=== PATIENT | male | born 1950 | race African-American/Black ===

== ENCOUNTER 2019-08-31 20:32 | Inpatient (IN) | payer MEDICARE, MEDICAID ==
[~2019-08-31] VITALS: Ht 190.5 cm; Wt 87.6 kg
[2019-08-31 20:36] VITALS: Ht 190.5 cm; Wt 87.6 kg
--- NOTE | 2019-08-31 20:54 | NUR ---
PT PRESENTS TO ED BROUGHT BY FRIEND, SHARON CONNER, WHO TOOK IN THE PATIENT RECENTLY WHO PREVIOUSLY WAS HOMELESS FOR APPROX 20+ YEARS. PER SHARON, PATIENTS BASELINE IS TYPICALLY MENTAL CAPACITY OF A 7-8 YEAR OLD BUT TODAY WAS ACTING MORE ABNORMAL THAN USUAL. PT CALLED SHARON AND STATED "PEOPLE ARE BREAKING INTO THE HOUSE AND COMING TO TAKE THINGS." FRIEND, SHARON REPORTS PT HAS HX OF DRUG USE MANY YEARS AGO WITH ADDITIONAL HX OF DRINKING. PER AJ PATIENTS BASELINE IS ALERT AND ORIENTED TO NAME, AND PLACE, TYPICALLY UNAWARE OF THE DATE, AAOX3. PT IS AAOX3 AT THIS TIME. PT CONFIRMS HALLUCINATIONS STATING "I WAS SEEING THINGS COME THROUGH MEYERS AND STUFF I SHOULD NOT BE SEEING." DENIES SI AND HI AT THIS TIME. PTS SPEECH IS MODERATELY SLURRED, PER BASELINE FOR PATIENT. PTS ONLY COMPLAINTS ARE THE FOLLOWING: "THE BOTTOM OF MY LEFT HEEL IS DRY, I NEED THAT SCRUBBY THING. I REALLY NEED MY EARS CLEANED OUT, I CANT HEAR ANYTHING." NON PROD COUGH NOTED. HX +SMOKING. PT CONNECTED TO MONITOR. DR LAWRENCE AT BEDSIDE FOR MSE.
--- NOTE | 2019-08-31 21:17 | NUR ---
LAB AT BEDSIDE.
--- NOTE | 2019-08-31 21:23 | NUR ---
XRAY AT BEDSIDE.
[2019-08-31 21:39] LABS: BASOPHIL % 0.6 % (0-2); RED CELL DISTRIBUTION WIDTH 13.5 % (11.5-14.5)
[2019-08-31 21:41] LABS: CALCIUM 8.3 mg/dL (8.5-10.1); CARBON DIOXIDE 25.8 mmol/L (21-32); CHLORIDE SERUM 99 mmol/L (98-107); CREATININE SERUM 1.2 mg/dL (0.7-1.3); GFR1 > 60 mL/min; GLUCOSE SERUM 158 mg/dL (74-106); POTASSIUM SERUM 4.4 mmol/L (3.5-5.1); SODIUM SERUM 138 mmol/L (136-145)
[2019-08-31 21:53] LABS: ALBUMIN 3.5 g/dL (3.4-5.0); ALKALINE PHOSPHATASE 151 U/L (46-116); ALT/SGPT 84 U/L (16-63); AST/SGOT 126 U/L (15-37); BILIRUBIN TOTAL 3.4 mg/dL (0.20-1.00)
[2019-08-31 22:01] LABS: PLATELET COUNT 102 x10^3mcL (130-400)
[2019-08-31 22:03] LABS: T4(THYROXINE) 16.5 ug/dL (4.7-13.3); TOTAL PROTEIN, SERUM 8.3 g/dL (6.4-8.2)
--- NOTE | 2019-08-31 22:09 | NUR ---
PT INSTRUCTED TO PROVIDE URINE SAMPLE KATHLEEN.
--- NOTE | 2019-08-31 23:47 | NUR ---
PT LAYING IN POSITION OF COMFORT, NO ACUTE DISTRESS NOTED, RESP EVEN AND UNLABORED. PT WAS ASKED IF HE WOULD LIKE LIGHTS DOWN TO PROMOTE SLEEP AND PT PROVIDED HIS LEFT ARM. INFORMED PT THAT I DID NOT NEED HIS ARM, THEN PT BEGAN LAUGHING I EXITED ROOM.
--- NOTE | 2019-09-01 00:35 | NUR ---
TELE NEURO CALLED ON MONITOR. REQUESTED TO SPEAK WITH NURSE. INFORMED HIM THAT THE PRIMARY NURSE WAS NOT AVAILABLE AND REQUESTED TRIAGE NURSE MICHELLE TO ASSIST. PER RN MICHELLE, AUDIO ON MONITOR CUT OUT DURING THE EXAM AND NEUORLOGIST ATTEMPTED TO TO REBOOT THEN HUNG UP. INFORMED .
[2019-09-01 00:47] LABS: AMPHETAMINE QUAL UR NONE DETECTED (See below)
--- NOTE | 2019-09-01 02:22 | NUR ---
REPORT GIVEN TO DAVY COLUNGA TO ASSUME CARE.
--- NOTE | 2019-09-01 02:30 | NUR ---
NOTIFIED FAMILY SHARON PRIETO OF PATIENTS ADMISSION STATUS.
--- NOTE | 2019-09-01 02:46 | NUR ---
RECEIVED PT FROM ED VIA JOEY ACCOMPANIED BY RN AND EMT. PT ABLE TO AMBULATE WITH SLOW GAIT TO BED WITH MINIMAL ASSISTANCE. NO ACUTE DISTRESS NOTED. AOX3 TO PERSON, PLACE, AND PURPOSE. ADMITTED FOR AMS. [place]. EVEN AND UNLABORED RESPIRATIONS ON RA. CONGESTED AND OCC CRACKLES NOTED ON AUSCULTATION. PLACED TELE #21 ON PT, READING SR. IV TO LEFT HAND PATENT AND INTACT RUNNING ANTIBIOTICS. ABD SOFT, FLAT, BOWEL SOUNDS ACTIVE. NO C/O N/V/D/ NO C/O PAIN AT THIS TIME. PSORIASIS NOTED THROUGHOUT BODY. DRY SCABS NOTED TO BLE AND FEET, PICTURES TAKEN. HAVING VISUAL HALLUCINATIONS AT THIS TIME. ORIENTED TO ROOM AND SURROUNDINGS. INSTRUCTED ON USE OF CALL LIGHT WHEN IN NEED OF ASSISTANCE. SITTER AT BEDSIDE FOR SAFETY. BED IN LOWEST POSITION. SIDE RAILS UPX2. CALL LIGHT WITHIN REACH. WILL CONTINUE TO MONITOR.
[2019-09-01 03:39] VITALS: BP 153/98
[2019-09-01 05:02] VITALS: BP 152/97
--- NOTE | 2019-09-01 06:29 | NUR ---
PT RESTING COMFORTABLY IN BED. AOX3. ALL NEEDS TENDED TO AND MET. ALL SCHEDULED MEDICATIONS GIVEN. HAVING VISUAL HALLUCINATIONS. CONGESTED LUNG SOUNDS, IS AT BEDSIDE. NO C/O PAIN. PSORIASIS AND SCABS NOTED THROUGHOUT BODY, PET SITTING. SITTERAT BEDSIDE FOR SAFETY. BED IN LOWEST POSITION. SIDE RAILS UPX2. CALL LIGHT WITHIN REACH. WILL ENDORSE TO ONCOMING SHIFT.
[2019-09-01 06:35] LABS: UA SPECIFIC GRAVITY 1.015 (1.005-1.035); microscopic required? YES; urine erythrocyte NEGATIVE (NEGATIVE)
[2019-09-01 07:35] LABS: CALCIUM 7.9 mg/dL (8.5-10.1); CARBON DIOXIDE 22.4 mmol/L (21-32); CHLORIDE SERUM 99 mmol/L (98-107); CREATININE SERUM 0.8 mg/dL (0.7-1.3); GFR1 > 60 mL/min; GLUCOSE SERUM 106 mg/dL (74-106); MAGNESIUM 1.3 mg/dL (1.8-2.4); PHOSPHOROUS 3.3 mg/dL (2.5-4.9); POTASSIUM SERUM 3.6 mmol/L (3.5-5.1); SODIUM SERUM 136 mmol/L (136-145)
--- NOTE | 2019-09-01 07:45 | NUR ---
PT AO X 3 TO PERSON, PLACE, PURPOSE. PT DENIES ANY PAIN/DISCOMFORT. [place]. LUNGS CONGESTED BILATERALLY. PT NON-PRODUCTIVE COUGH AT TIMES. ON ROOM AIR. INCENTIVE SPIROMETER AT BEDSIDE. NSR ON TELE, TELE #21, HR = 76. IV IN L HAND RUNNING NS AT 100 ML/HR. BOWEL SOUNDS ACTIVE IN ALL QUANDRANTS. PULSES EQUAL IN UE AND LE. NO EDEMA NOTED. GENERALIZED WEAKNESS. PT ABLE TO SELF-REPOSITION. DRY SCABS IN BLE AND FEET, OPEN TO AIR. PSORIASIS NOTED THROUGHOUT BODY. PT REPORTS VISUAL HALLUCINATIONS. PT INSTRUCTED TO CALL FOR ANY PAIN/DISCOMFORT. SITTER AT BEDSIDE. BED IN LOWEST POSITION. CALL LIGHT WITHIN REACH. WILL CONTINUE TO MONITOR.
[2019-09-01 08:17] VITALS: BP 148/86
[2019-09-01 09:04] LABS: BASOPHIL % 0.5 % (0-2); RED CELL DISTRIBUTION WIDTH 13.5 % (11.5-14.5)
[2019-09-01 09:09] LABS: PLATELET COUNT 105 x10^3mcL (130-400)
--- NOTE | 2019-09-01 10:24 | NUR ---
NURSING CO-SIGN THE DOCUMENTATION ENTERED BY THE IP HAS BEEN REVIEWED. REVIEWED/CO-SIGNED BY: Alethea Ansari DOCUMENTATION DONE BY:SUSAN OSUNA,STUDENT NURSE.
[2019-09-01 12:07] VITALS: BP 142/79
--- NOTE | 2019-09-01 13:22 | NUR ---
CALLED ABOUT PT'S MG=1.3. PER WILL ORDER MG RIDER.
--- NOTE | 2019-09-01 13:28 | NUR ---
PT HALLUCINATING GOING UNDER THE BED CLAIMING TO BE SEEING STUFF.REDIRECTED PT GET BACK TO BED.INFORMED .AWAITING FOR ORDERS.
--- NOTE | 2019-09-01 13:49 | NUR ---
PT GIVEN 1 MG OF ATIVAN ORDERED PRN FOR AGITATION.
--- NOTE | 2019-09-01 13:55 | NUR ---
Discount pharmacy card and list to low cost medical clinics given to patient by Soni Spangler.
--- NOTE | 2019-09-01 15:26 | NUR ---
PT AGITATED. PULLED OUT IV. INSERTED 22 G IN L WRIST. GIVEN 1 MG IVP ATIVAN ORDERED PRN.
--- NOTE | 2019-09-01 16:26 | NUR ---
WENT TO CHECK ON PT. PT SLEEPING COMFORTABLY IN BED. WILL CONTINUE TO MONITOR.
--- NOTE | 2019-09-01 16:41 | NUR ---
PT REFUSED TO HAVE VITALS AND BLOOD GLUCOSE TAKEN.
--- NOTE | 2019-09-01 18:31 | NUR ---
PT URINATED ALL OVER THE BED.CLEANED AND CHANGED PT.PT SLEEPY.REFUSED DINNER.
--- NOTE | 2019-09-01 19:32 | NUR ---
RECEIVED PT IN LEFT LATERAL POSITION, ASLEEP AT THIS TIME. NO S/S OF DISCOMFORT. NO FACIAL GERIMACING NOTED. RESPIRATION EVEN AND UNLABORED. SKIN WARM AND DRY TO TOUCH WITH DRY SCABS T BLE, LEFT ELBOW. IV SITE AT THE LEFT HAND INTACT AND PATENT. SITTER AT BEDSIDE, PLACED CALL LIGHT WITHIN REACH.
[2019-09-01 22:07] VITALS: BP 137/85
--- NOTE | 2019-09-02 00:01 | NUR ---
EYES CLOSED, NO FACIAL GRIMACING NOTED. RESPIRATION EVEN AND UNLABORED WITH SLIGHT CONGESTION. RT AT BEDSIDE, ON RT PROTOCOL. ASSISTED IN REPOSITIONING.
--- NOTE | 2019-09-02 03:29 | NUR ---
PT VERY ANXIOUS/AGITATED, REMOVING CARDIAC LIDS AND IV TUBING, ATIVAN 1MG IVP PRN MEDICATION. ON ALCOHOL WITHDRAWAL PROTOCOL, INCONTINENT OF BLADDER FUNCTION. KEPT CLEAN AND DRY.
--- NOTE | 2019-09-02 06:11 | NUR ---
BLOOD SUGAR CHECK VIA FINGERSTICK NOT DONE, PATIENT BADLY REFUSED, VERY COMBATIVE AT THIS TIME. CONTINUES ON ATB IVPB WITHOUT ADVERSE REACTION NOTED. KPET CLEAN AND DRY. ALL NEEDS ATTENDED.
[2019-09-02 06:14] VITALS: BP 153/79
[2019-09-02 07:09] LABS: ALKALINE PHOSPHATASE 132 U/L (46-116); ALT/SGPT 58 U/L (16-63); AST/SGOT 86 U/L (15-37); BILIRUBIN TOTAL 1.54 mg/dL (0.20-1.00); CALCIUM 7.2 mg/dL (8.5-10.1); CARBON DIOXIDE 21.9 mmol/L (21-32); CHLORIDE SERUM 107 mmol/L (98-107); CREATININE SERUM 0.7 mg/dL (0.7-1.3); GFR1 > 60 mL/min; GLUCOSE SERUM 99 mg/dL (74-106); MAGNESIUM 1.7 mg/dL (1.8-2.4); PHOSPHOROUS 3.9 mg/dL (2.5-4.9); POTASSIUM SERUM 3.9 mmol/L (3.5-5.1); SODIUM SERUM 139 mmol/L (136-145); TOTAL PROTEIN, SERUM 6.5 g/dL (6.4-8.2)
[2019-09-02 07:10] LABS: ALBUMIN 2.6 g/dL (3.4-5.0)
--- NOTE | 2019-09-02 08:00 | NUR ---
AAO TO PERSON, CONFUSED. 1:1 SITTER. COMPULSIVE AND UNABLE TO CONTRACT FOR SAFETY. LUNGS CTA. NO SOB. O2 SAT ON RA 98%. BS'S ACTIVE TIMES 4. COOPERATIVE. NO C/O PAIN. DRIED SCRATCH TYPE SCABS TO BILATERAL FEET, HEALING, SALES PORTER. PERIPHERAL PULSES PALPABLE. NO EDEMA.
[2019-09-02 08:45] LABS: PLATELET COUNT 81 x10^3mcL (130-400)
[2019-09-02 08:46] LABS: BASOPHIL % 0.7 % (0-2)
--- NOTE | 2019-09-02 09:10 | NUR ---
REFUSING TO TAKE PILLS.
[2019-09-02 09:37] VITALS: BP 137/72
--- NOTE | 2019-09-02 12:20 | NUR ---
VOMITED HIS BREAKFAST AND WATER TWICE, ALL OVER THE FLOOR. I GAVE HIM ZOFRAN 4 MG IVP AT 1220. AT 1250 HE STATED HIS STOMACH FELT BETTER.
[2019-09-02 17:54] VITALS: BP 138/79
--- NOTE | 2019-09-02 18:07 | NUR ---
AAO TO SELF. TELE # 21 SR. VS'S STABLE. NO SOB. 1:1 SITTER IN ROOM. NO C/O PAIN. NEW IV SITE TO LFA CDI, PATENT. NO SOB.
--- NOTE | 2019-09-02 19:55 | NUR ---
RECEIVED IN BED WITH EYES CLOSED, NO FACIAL GRIMACING NOTED. RESPIRATION EVEN AND UNLABORED. SKIN WARM AND DRY TO TOUCH WITH DRY SCAB TO BLE/KNEES AND MIDBACK. SITTER AT BEDSIDE, CALL LIGHT WITHINR EACH.
[2019-09-02 20:45] VITALS: BP 148/80
--- NOTE | 2019-09-03 00:01 | NUR ---
CONTINUES ON ATB IVPB ORDERED. NO ADVERSE REACTION NOTED. ORAL FLUIDS WELL TOLERATED. NO S/S OF ASPIRATION NOTED.
--- NOTE | 2019-09-03 06:12 | NUR ---
INCONTINENT OF BLADDER FUNCTION. KEPT CLEAN AND DRY. GLENDA ALEIDA RACTION NOTED FROM ATB THERAPY. ALL NEEDS ATTENDED.
[2019-09-03 06:35] VITALS: BP 131/68
[2019-09-03 07:09] LABS: BASOPHIL % 0.4 % (0-2); RED CELL DISTRIBUTION WIDTH 13.6 % (11.5-14.5)
[2019-09-03 07:31] LABS: PLATELET COUNT 88 x10^3mcL (130-400)
[2019-09-03 07:49] LABS: CALCIUM 8.1 mg/dL (8.5-10.1); CARBON DIOXIDE 21.6 mmol/L (21-32); CHLORIDE SERUM 105 mmol/L (98-107); CREATININE SERUM 0.7 mg/dL (0.7-1.3); GFR1 > 60 mL/min; GLUCOSE SERUM 101 mg/dL (74-106); MAGNESIUM 1.7 mg/dL (1.8-2.4); POTASSIUM SERUM 3.9 mmol/L (3.5-5.1); SODIUM SERUM 140 mmol/L (136-145)
[2019-09-03 08:25] VITALS: BP 143/73
--- NOTE | 2019-09-03 10:26 | NUR ---
AAO TO PERSON, CONFUSED. [place]. LUNGS CONGESTED BILATERALLY. O2 SAT ON RA 95%. BS'S ACTIVE TIMES 4. VILA WITH SLIGHT GENERALIZED WEAKNESS. 1:1 SITTER AT BEDSIDE. IV SITE CDI. COOPERATIVE AT THIS TIME. NO C/O PAIN. RT CALLED TO GIVE HIM A BREATHING TREATMENT.
[2019-09-03 12:08] VITALS: BP 114/69
[2019-09-03 17:05] VITALS: BP 115/69
--- NOTE | 2019-09-03 18:18 | NUR ---
AAO TO PERSON AND PLACE. COOPERATIVE TODAY. TELE # 21 SR. NO SOB. NO C/O PAIN. 1:1 SITTER IN ROOM. IV SITE CDI. SLEEPING MOST OF DAY, BUT AROUSABLE.
--- NOTE | 2019-09-03 19:45 | NUR ---
RECEIVED IN BED, LEFT LATERAL POSITION. ON TELE #21 WITH SR , CASING BLOWER S/S OF CHEST PAIN/DISCOMFORT. IV SITE AT THE RIGHT LOWER FOREARM INTACT AND PATENT WITH IVF INFUSING AT 100CC/HR. SITTER AT BEDSIDE.
[2019-09-04 05:39] VITALS: BP 151/67
--- NOTE | 2019-09-04 05:56 | NUR ---
ABLE TO SLEEP AT LONG INTERVALS. CONTINUES ON ATB IVPB, NO ADVERSE REACTON NOTED. REFUSED BLOOD SUGAR CHECK VIA FINGERSTICK, EXPALINED THE RISKS/BENEFITS BUT NNO AVAIL.
[2019-09-04 08:01] LABS: BASOPHIL % 0.5 % (0-2); PLATELET COUNT 101 x10^3mcL (130-400); RED CELL DISTRIBUTION WIDTH 13.7 % (11.5-14.5)
--- NOTE | 2019-09-04 08:13 | NUR ---
REPORT TAKEN FROM COTTON BALL BAGGER NURSE AT THE BEDSIDE, PATIENT ALERT AND ORENTIED X 1-2. SITTING UP IN BED AT THIS TIME EATING BREAKFAST, PATIENT DID NOT RESPOND TO VERBAL CUES, BUT WAS ABLE TO FOLLOW DIRECTIONS. SITTER AT THE BED SIDE , WILL CONTINUE TO MONITOR.
[2019-09-04 08:20] LABS: CALCIUM 8.5 mg/dL (8.5-10.1); CHLORIDE SERUM 106 mmol/L (98-107); GFR1 > 60 mL/min; GLUCOSE SERUM 103 mg/dL (74-106); POTASSIUM SERUM 4.4 mmol/L (3.5-5.1); SODIUM SERUM 140 mmol/L (136-145)
[2019-09-04 08:31] VITALS: BP 142/85
[2019-09-04 13:25] VITALS: BP 142/85
--- NOTE | 2019-09-04 19:15 | NUR ---
CARE ASSUMED FROM OUTGOING RN. PT RESTING COMFORTABLY IN BED. NO ACUTE DISTRESS NOTED. EVEN AND UNLABORED RESPIRATIONS ON RA. MEDSURG PT. IV PATENT AND INTACT RUNNING FLUIDS PER EMAR. NO C/O PAIN AT THIS TIME. SITTER AT BEDSIDE FOR SAFETY. BED IN LOWEST POSITION. SIDE RAILS UPX2. CALL LIGHT WITHIN REACH. WILL CONTINUE TO MONITOR.
[2019-09-04 20:54] VITALS: BP 143/71
--- NOTE | 2019-09-05 00:35 | NUR ---
PT RESTING IN BED WITH EYES CLOSED. NO ACUTE DISTRESS NOTED. EVEN AND UNLABORED RESPIRATIONS ON RA. IV PATENT AND INTACT RUNNING FLUIDS PER EMAR. PT ABLE TO USE URINAL, YELLOW URINE NOTED. SITTER AT BEDSIDE FOR SAFETY. WILL CONTINUE TO MONITOR.
[2019-09-05 06:17] VITALS: BP 150/86
--- NOTE | 2019-09-05 06:20 | NUR ---
PT SLEPT IN INTERVALS THROUGHOUT THE SHIFT. ALL NEEDS TENDED TO AND MET. ALL SCHEDULED MEDICATIONS GIVEN. IV PATENT AND INTACT RUNNING FLUIDS PER EMAR. EVEN AND UNLABORED RESPIRATIONS ON RA. NO C/O PAIN. CALM AND COOPERATIVE. SITTER AT BEDSIDE FOR SAFETY. BED IN LOWEST POSITION. SIDE RAILS UPX2. CALL LIGHT WITHIN REACH. WILL ENDORSE TO ONCOMING SHIFT.
--- NOTE | 2019-09-05 07:20 | NUR ---
RECEIVED PT FROM NIGHT NURSE. PT IS LAYING DOWN IN BED WITH HOB UP RESTING WITH EYES CLOSED. PT LOOKS TO BE IN NO ACUTE DISTRESS AT THIS TIME. RESPIRATIONS EVEN AND UNLABORED ON ROOM AIR. IV SITE PATENT WITH NO SIGNS OF ERYTHEMA OR SWELLING WITH IV FLUIDS INFUSING. SITTER AT BEDSIDE. BED IN LOWEST POSITION, WILL CONTINUE TO MONITOR.
[2019-09-05 07:28] LABS: CALCIUM 8.6 mg/dL (8.5-10.1); CARBON DIOXIDE 24.4 mmol/L (21-32); CHLORIDE SERUM 106 mmol/L (98-107); CREATININE SERUM 0.7 mg/dL (0.7-1.3); GFR1 > 60 mL/min; GLUCOSE SERUM 110 mg/dL (74-106); SODIUM SERUM 141 mmol/L (136-145)
[2019-09-05 07:47] LABS: BASOPHIL % 0.7 % (0-2); RED CELL DISTRIBUTION WIDTH 13.5 % (11.5-14.5)
[2019-09-05 07:49] LABS: PLATELET COUNT 106 x10^3mcL (130-400)
[2019-09-05 08:36] VITALS: BP 144/88
--- NOTE | 2019-09-05 12:20 | NUR ---
PT IS SITTING UP IN BED EATING. PT LOOKS TO BE IN NO ACUTE DISTRESS AT THIS TIME AND DENIES ANY PAIN. PT TABLE [place] BILATERALLY. SITTER AT BEDSIDE. CALL LIGHT WITHIN REACH. WILL CONTINUE TO MONITOR.
[2019-09-05 17:30] VITALS: BP 130/83
--- NOTE | 2019-09-05 18:04 | NUR ---
PT IS SITTING UP IN BED EATING. PT LOOKS TO BE IN NO ACUTE DISTRESS AT THIS TIME AND DENIES ANY PAIN. RESPRIATIONS EVEN AND UNLABORED ON ROOM AIR. PT AWAKE, ALERT AND ORIENTED TO PERSON AND PLACE. PT [place] AND SLOW TO RESPOND AT TIMES RELATED TO [place]. PT SPEECH SLURRED BUT COMPREHENDABLE. IV SITE PATENT WITH NO SIGNS OF ERYTHEMA OR SWELLING WITH IV FLUIDS INFUSING. CALL LIGHT WITHIN REACH, SITTER AT BEDSIDE FOR SAFETY. WILL ENDORSE TO ONCOMING SHIFT.
--- NOTE | 2019-09-05 19:13 | NUR ---
RECEVIED PT FROM PREVIOUS SHIFT. PT RESTING WITH EYES CLOSED. RR EVEN AND UNLABORED. PT EASILY AWAKENED WITH TACTILE STIMULI. PILOT STATION. IV PATENT AND INFUSING NS AT 100ML/HR WITH NO S/S OF INFILTRATION. CALL LIGHT WITHIN REACH, BED IN LOW POSITION. SITTER AT BEDSIDE. WILL CONTINUE TO MONITOR.
[2019-09-05 21:00] VITALS: BP 130/81
--- NOTE | 2019-09-06 01:01 | NUR ---
PT RESTING IN NO ACUTE DISTRESS. RR EVEN AND UNLABORED. CALL LIGHT WITHIN REACH, BED IN LOW POSITION. WILL CONTINUE TO MONITOR.
[2019-09-06 06:31] LABS: BASOPHIL % 0.7 % (0-2); RED CELL DISTRIBUTION WIDTH 13.8 % (11.5-14.5)
[2019-09-06 06:54] LABS: CALCIUM 8.6 mg/dL (8.5-10.1); CARBON DIOXIDE 25.1 mmol/L (21-32); CHLORIDE SERUM 108 mmol/L (98-107); CREATININE SERUM 0.7 mg/dL (0.7-1.3); GFR1 > 60 mL/min; GLUCOSE SERUM 123 mg/dL (74-106); SODIUM SERUM 143 mmol/L (136-145)
[2019-09-06 07:31] LABS: PLATELET COUNT 117 x10^3mcL (130-400)
--- NOTE | 2019-09-06 07:34 | NUR ---
RECIEVED MORNING REPORT FROM [facility] NURSE [id number]. PATIENT OBSERVED RESTING COMFORTABLY IN BED. NS INFUSING AT 100/HOUR TO THE LEFT FOREARM. PATIENT ON ROOM AIR. RESPIRATORY RATE REGULAR AND UNLABORED. BED IN THE LOW POSITION. SAFETY PRECAUTIONS IN PLACE. CALL LIGHT WITHIN REACH.
--- NOTE | 2019-09-06 08:44 | NUR ---
PT IN ROOM EVALUATING PATIENT.
--- NOTE | 2019-09-06 09:15 | NUR ---
SITTER DISCONTINUED PER PHYSICIAN ORDER.
[2019-09-06 09:58] VITALS: BP 120/75
--- NOTE | 2019-09-06 12:22 | NUR ---
1. Recommend changing to CCHO diet as patient is diabetic. Discussed with ETHAN Santos.
--- NOTE | 2019-09-06 12:22 | NUR ---
Initial Nutrition Assessment: 248/B PRIYA PERRY MR Dx: COPD PMHx: Psoriasis, polysubstance abuse PSHx: Unknown Labs: BG 123H, ALB 2.6L, AST 86H, AMMONIA 44H, A1C 6.7H Meds: Ativan, Colace, D 50%, Humulin, lactinex, Librium, theragran, vitamin B-1, Zofran, zosyn Diet: Regular PO intake since admission: (09/05) dinner 90%, lunch, breakfast 100%, (07/05) breakfast 100% Ht: 190.5 cm (75") Wt: 87.6 kg (193#) BMI: 24.1 kg/m2 Bed scale: 193# IBW: 196# (89 kg) %IBW: 98 UBW: unable to access Age: 68/M Food Allergies: NKFA Skin: dry scabs to DANIELLE, Psoriasis throughout body Lalito: 20 Edema: none GI: Last BM: 08/31 Per H&P, Pt is a 68-year-old Male with history of polysubstance abuse who was brought by his friend with a 1-day history of altered mental status associated with visual hallucinations. RD Note (09/06): Patient was sleeping. Per RN Lou, patient ate 100% breakfast this morning and does not have c/o N/V/D/C at this time. Per progress note (09/06), patient evaluated by PT and recommends SNF. Problem with: N/V/D/C: none per RN Problems with: Chewing: Swallowing: none Current appetite: good per RN Recent wt change: unable to access %wt change: n/a Vitamin/Supplement use: unable to access Special diet at home: unable to access Physical activity: unable to access Nutrition education given: NCM handout on 'Type 2 Diabetes Nutrition Therapy' was kept by the bedside and RN was informed. RD can be contacted if patient has any questions. Food-drug interactions: none Education given: n/a Estimated Nutritional Needs Based on current body weight (87.6 kg) Energy: 4491-6024 kcal/day (25-30 kcal/kg for maintenance) Protein: 87-105 g/day (1.0-1.2 g/kg for maintenance) Fluid: 4541-5858 mL/day (1 mL/kcal) Nutrition Diagnosis: 1. Altered nutrition related lab values related to medical condition as evidenced by A1C 6.7H, Ammonia 44H. Intervention 1. Recommend changing to CCHO diet as patient is diabetic. Discussed with ETHAN Santos. Monitor/Evaluate Goal: PO intake at least 75% of estimated needs Monitor: PO intake, Labs, GI function F/U in 7 days as low risk 09/13
[2019-09-06 16:55] VITALS: BP 118/64
--- NOTE | 2019-09-06 18:12 | NUR ---
PATIENT RESTING IN BED. IV INFUSING ZOSYN AT 100/HOUR TO LEFT FOREARM. BED IN THE LOW POSITION. SAFETY PRECAUTIONS IN PLACE. WILL ENDORSE FURTHER CARE TO NIGHT NURSE.
--- NOTE | 2019-09-06 19:30 | NUR ---
PT IS RESTING IN BED WITH BOTH EYES CLOSED. EASLY AROUSED. DENIES ANY PAIN OR DISTRESS. ALERT x3. MED SURG. DENIES ANY CHEST PAIN. PULSES ARE PRESENT. NO EDEMA NOTED. LUNGS CLEAR IN ALL FEILDS. ON RA, DENIES ANY SOB. EQUAL CHEST RISE AND FALL. NO SIGN OF RESP DISTRESS. BOWEL SOUNDS ARE PRESENT. DRY SKIN NOTED ON BLE , SILVIO FEET AND R ELBOW. DENIES PAIN AT THIS TIME. IV ON LFA INTACT AND PATENT. BED IS AT LOWEST SETTING. CALL LIGHT WITHIN REACH. WILL CONTINUE TO MONITOR.
[2019-09-06 20:30] VITALS: BP 143/78
--- NOTE | 2019-09-07 00:56 | NUR ---
PT IS RESTING IN BED WITH BOTH EYES CLOSED. BREATHING EVEN AND UNLABORED. NO SIGN OF DISTRESS NOTED. BED IS AT LOWEST SETTING. CALL LIGHT WITHIN REACH. WILL CONTINUE TO MONITOR.
[2019-09-07 06:18] VITALS: BP 143/77
--- NOTE | 2019-09-07 07:04 | NUR ---
PT IS RESTING IN BED WITH BOTH EYES CLOSED. BREATHING EVEN AND UNLABORED. NO SIGN OF DISTRESS. NO ACUTE EVENT OCCURED AT NIGHT. WILL ENDORSE TO AM NURSE.
--- NOTE | 2019-09-07 07:15 | NUR ---
RECIEVED PT ASLEEP IN BED WITH NO S/S OF ANY DISTRESS. A/OX 3 WITH NO ANGULO OR DIZZINESS. SLURRED SPEECH AND [place] BILATERALLY. PSORIASIS NOTED THROUGHOUT BODY. NS 100ML/HR RUNNING IN LFA, CDI AND PATENT. SAFETY PRECAUTIONS IN PLACE, CALL LIGHT WITHIN REACH, WILL MONITOR.
[2019-09-07 08:45] VITALS: BP 140/97
[2019-09-07] MEDS ORDERED: LEVOFLOXACIN500 M1 PO (11:08)
[2019-09-07] MEDS ORDERED: SEROQUEL25 MG PO (11:08)
[2019-09-07 11:11] VITALS: BP 140/97
[2019-09-07 13:27] VITALS: BP 140/97
[2019-09-07 17:28] VITALS: BP 157/85
--- NOTE | 2019-09-07 18:28 | NUR ---
PT STABLE WITH NO C/O PAIN OR DISTRESS. A/O X3 WITH NO ANGULO OR DISSINESS. LUNGS CTAB. NS RUNNING AT 100ML/HR IN LFA, IV CDI AND PATENT. SAFETY PRECAUTIONS IN PLACE, CALL LIGHT WITHIN REACH, WILL ENDORSE CARE TO NIGHT NURSE.
--- NOTE | 2019-09-07 20:00 | NUR ---
PT A/A/O X3, SLURRED SPEACH, [place] HEARING AND NO HALLUCINATIONS NOTED. DENIES DIZZINESS AND HEADACHE. BREATH SOUNDS CLEAR. BREATHING EVEN AND UNLABORED ON ROOM AIR. DENIES CHEST PAIN AND PRESSURE. BOWEL SOUNDS ACTIVE. NO C/O N/V AND ABD PAIN. DRY SCABS NOTED ON SILVIO FEET AND RIGHT ELBOW. IV INTACT ON THE LEFT FOREARM INFUSING WITH NS AT 100 ML/HR. MADE PT COMFORTABLE. PLACED CALL LIGHT WITH IN REACH. WILL CONTINUE TO MONITOR.
[2019-09-07 20:55] VITALS: BP 134/77
--- NOTE | 2019-09-08 00:17 | NUR ---
PT WAS DISCHARGED VIA GURNEY ACCOMPANIED BY MEDICAL TRANSPORT TO [facility]. PT IS ALERT AND AWAKE WITH NO C/O PAIN. IV TAKEN OF. PT TOLERATED IT WELL. GAVE REPORT TO GENA OF [facility].
== END 2019-09-08 | DRG 137 ==
LOC: ED 20:32 → MU 09-01 01:37 → DU 09-01 01:37 → MU 09-03 10:56
PROVIDERS: Emergency Medicine; Internal Medicine; ADMIT Internal Medicine
DX: J69.0 Pneumonitis due to inhalation of food and vomit (principal); G93.41 Metabolic encephalopathy; E11.65 Type 2 diabetes mellitus with hyperglycemia; K70.0 Alcoholic fatty liver; J44.9 Chronic obstructive pulmonary disease, unspecified; F10.230 Alcohol dependence with withdrawal, uncomplicated; T51.0X1A Toxic effect of ethanol, accidental (unintentional), initial encounter; J98.11 Atelectasis; R91.8 Other nonspecific abnormal finding of lung field; L40.9 Psoriasis, unspecified; Y90.0 Blood alcohol level of less than 20 mg/100 ml; R74.0 Nonspecific elevation of levels of transaminase and lactic acid dehydrogenase [LDH]; Z68.23 Body mass index [BMI] 23.0-23.9, adult; Z79.84 Long term (current) use of oral hypoglycemic drugs
CPT/HCPCS: 82962; 84439; 97116-GP; 97530-GP; 99406; G0378; G0480; J0456; J0696; J2060; J2405; J2543; J3411; J3475; J7030; J7050; J7060; J7620; Q0092